=== PATIENT | male | born 1985 | race Caucasian/White ===

== ENCOUNTER → 2016-12-22 | Outpatient (CLI) | payer BC ==
--- NOTE | 2016-12-22 17:19 | XR ---
EXAMINATION TYPE: XR ankle complete bilateral, XR foot complete bilateral DATE OF EXAM: 12/22/2016 5:00 PM CLINICAL HISTORY: Chronic bilateral foot and ankle pain, left greater than right TECHNIQUE: Frontal, lateral and oblique images of the bilateral ankles and feet are obtained. COMPARISON: None. FINDINGS: There is no acute fracture/dislocation evident in either ankle. The ankle mortise appears within normal limits bilaterally. The overlying soft tissue appears unremarkable bilaterally. There is no acute fracture or dislocation evident in either foot. Marked flexion or hammertoe type de formity in distal third through fifth toes is present bilaterally, right greater than left . Accessor y ossicle near tarsal cuboid bone bilaterally is present. The joint spaces in the bilateral feet are preserved. Overlying soft tissue is unremarkable bilaterally. IMPRESSION: There is no suspicious finding seen to account for patient's symptoms.
== END | disposition home or self-care (01) ==
LOC: RADXRMAIN 16:35
PROVIDERS: ATTEND Internal Medicine
DX: M25.571 Pain in right ankle and joints of right foot (principal); M25.572 Pain in left ankle and joints of left foot